=== PATIENT | female | born 1930 | race Two or more races ===

== ENCOUNTER 2017-12-30 07:57 | Outpatient (CLI) | payer OTHER | END 2017-12-30 08:04 | disposition home or self-care (01) | LOC: NUCLEAR 07:57 | DX: I25.10 Atherosclerotic heart disease of native coronary artery without angina pectoris (principal); I25.118 Atherosclerotic heart disease of native coronary artery with other forms of angina pectoris | CPT/HCPCS: 78452; 93017; A9500; J0153 ==